=== PATIENT | male | born 1955 | race American Indian/Alaskan Native ===

== ENCOUNTER 2019-04-22 14:30 | Emergency (ER) | payer OTHER ==
--- NOTE | 2019-04-22 14:40 | Event Note ---
ED Screening Note Date of service: 04/22/19 Time: 14:38 ED Screening Note: 63 y/o male comes in for burning to both feet times couple of weeks. This initial assessment/diagnostic orders/clinical plan/treatment(s) is/are subject to change based on patients health status, clinical progression and re- assessment by fellow clinical providers in the ED. Further treatment and workup at subsequent clinical providers discretion. Patient/guardian urged not to elope from the ED as their condition may be serious if not clinically assessed and managed. Initial orders include:
[2019-04-22 15:12] LABS: Basophils % (Auto) 0.6 % (0.0-1.8); Hematocrit 53.9 % (35.5-45.6); Hemoglobin 18.2 gm/dl (11.8-15.2); Lymphocytes # (Auto) 1.1 K/mm3 (1.2-5.4); Lymphocytes % (Auto) 21.7 % (13.4-35.0); Mean Corpuscular HGB Conc 34 % (32-34); Mean Corpuscular Volume 101 fl (84-94); Monocytes # (Auto) 0.3 K/mm3 (0.0-0.8); Monocytes % (Auto) 6.4 % (0.0-7.3); Platelet Count 200 K/mm3 (140-440); Red Blood Count 5.34 M/mm3 (3.65-5.03); Red Cell Distribution Width 12.8 % (13.2-15.2)
[2019-04-22] MEDS ORDERED: NORMODYNE IV ONE ×2 (15:20→15:57)
[2019-04-22 15:34] LABS: Alanine Aminotransferase 13 units/L (7-56); Albumin 4.6 g/dL (3.9-5); BUN/Creatinine Ratio 16; Blood Urea Nitrogen 16 mg/dL (9-20); Calcium 9.9 mg/dL (8.4-10.2); Hemolysis Index 34
--- NOTE | 2019-04-22 15:40 | Emergency Department Report ---
ED General Adult HPI - General Chief complaint: Dizziness Stated complaint: DRY MOUTH/FEET BURNING Time Seen by Provider: 04/22/19 15:18 Source: patient Mode of arrival: Ambulatory Limitations: No Limitations - History of Present Illness Initial comments: This is a 63-year-old gentleman who probably hasn't seen a physician in decades. He states that he came to the emergency room today because he has burning feet and is thirsty all the time. He wanted to find out if he is diabetic. According to the triage note he is weak and dizzy. However the patient denies any symptoms completely. He cannot tell me if he is previously prescribed blood pressure medicine because it has been so long since he seen a doctor he does not recall. He is found to b e significantly hypertensive. He doesn't complain of shortness of breath nor chest pain. He can't identify any other reason for seeking emergency care. -: Gradual Severity scale (0 -10): 0 Associated Symptoms: denies other symptoms - Related Data Previous Rx's Medication Instructions Recorded Last Taken Type Hydralazine HCl 50 mg PO BID #60 tablet 04/22/19 Unknown Rx Losartan/Hydrochlorothiazide 1 each PO QDAY #30 tablet 04/22/19 Unknown Rx [Losartan-Hctz 50-12.5 mg Tab] Allergies Allergy/AdvReac Type Severity Reaction Status Date / Time No Known Allergies Allergy Verified 04/22/19 14:40 ED Review of Systems ROS: Stated complaint: DRY MOUTH/FEET BURNING Other details as noted in HPI Constitutional: denies: chills, fever Eyes: denies: eye pain, eye discharge, vision change ENT: denies: ear pain, throat pain Respiratory: denies: cough, shortness of breath, wheezing Cardiovascular: denies: chest pain, palpitations Endocrine: increased thirst, unexplained weight loss. denies: increased urine Gastrointestinal: denies: abdominal pain, nausea, diarrhea Genitourinary: denies: urgency, dysuria Musculoskeletal: denies: back pain, joint swelling, arthralgia Skin: denies: rash, lesions Neurological: other (burning feet). denies: headache, weakness, paresthesias Psychiatric: denies: anxiety, depression Hematological/Lymphatic: denies: easy bleeding, easy bruising ED Past Medical Hx - Past Medical History Previous Medical History?: Yes - Surgical History Past Surgical History?: No - Social History Smoking Status: Never Smoker Substance Use Type: Alcohol - Medications Home Medications: Home Medications Medication Instructions Recorded Confirmed Last Taken Type Hydralazine HCl 50 mg PO BID #60 tablet 04/22/19 Unknown Rx Losartan/Hydrochlorothiazide 1 each PO QDAY #30 tablet 04/22/19 Unknown Rx [Losartan-Hctz 50-12.5 mg Tab] ED Physical Exam - General Limitations: No Limitations General appearance: alert, in no apparent distress - Head Head exam: Present: atraumatic, normocephalic - Eye Eye exam: Present: normal appearance. Absent: scleral icterus - ENT ENT exam: Present: mucous membranes moist - Neck Neck exam: Present: normal inspection. Absent: tenderness, meningismus - Respiratory Respiratory exam: Present: normal lung sounds bilaterally. Absent: respiratory distress - Cardiovascular Cardiovascular Exam: Present: regular rate, normal rhythm. Absent: systolic murmur, diastolic murmur, rubs, gallop - GI/Abdominal GI/Abdominal exam: Present: soft, normal bowel sounds. Absent: distended, tenderness, guarding, rebound, rigid - Rectal Rectal exam: Present: deferred - Extremities Exam Extremities exam: Present: normal inspection. Absent: pedal edema, calf tenderness - Back Exam Back exam: Present: normal inspection - Neurological Exam Neurological exam: Present: alert, oriented X3, CN II-XII intact. Absent: motor sensory deficit - Psychiatric Psychiatric exam: Present: normal affect, normal mood - Skin Skin exam: Present: warm, dry, intact, normal color. Absent: rash ED Course Vital Signs 04/22/19 04/22/19 04/22/19 14:38 15:08 15:16 Temperature 97.9 F Pulse Rate 88 71 Respiratory 20 17 Rate Blood Pressure 209/114 198/94 Blood Pressure 193/97 [Left] O2 Sat by Pulse 97 98 97 Oximetry 04/22/19 04/22/19 04/22/19 15:26 15:31 15:45 Temperature Pulse Rate 73 73 71 Respiratory 23 17 Rate Blood Pressure 202/93 197/103 202/93 Blood Pressure [Left] O2 Sat by Pulse 98 98 Oximetry 04/22/19 04/22/19 04/22/19 15:57 16:00 16:01 Temperature Pulse Rate 75 72 Respiratory 17 Rate Blood Pressure 203/110 203/110 Blood Pressure 197/103 [Left] O2 Sat by Pulse 97 Oximetry 04/22/19 04/22/19 04/22/19 16:15 16:31 16:37 Temperature Pulse Rate 65 64 75 Respiratory 15 19 Rate Blood Pressure 197/103 205/116 205/116 Blood Pressure [Left] O2 Sat by Pulse 98 98 Oximetry 04/22/19 04/22/19 04/22/19 16:45 17:00 17:15 Temperature Pulse Rate 82 76 69 Respiratory 16 16 15 Rate Blood Pressure 205/116 201/102 205/116 Blood Pressure [Left] O2 Sat by Pulse 99 97 98 Oximetry - Reevaluation(s) Reevaluation #1: Patient remains asymptomatic. His blood pressure is now still elevated but not "malignantly" high. The importance of blood pressure management has been emphasized to him and his significant other. He will be referred to primary care and started on antihypertensive agents. 04/22/19 17:27 ED Medical Decision Making - Lab Data Result diagrams: 04/22/19 14:41 04/22/19 14:41 Laboratory Results - last 24 hr 04/22/19 04/22/19 04/22/19 14:41 14:41 15:20 WBC 5.2 RBC 5.34 H Hgb 18.2 H Hct 53.9 H MCV 101 H MCH 34 H MCHC 34 RDW 12.8 L Plt Count 200 Lymph % (Auto) 21.7 Eddy % (Auto) 6.4 Eos % (Auto) 0.0 Baso % (Auto) 0.6 Lymph # 1.1 L Eddy # 0.3 Eos # 0.0 Baso # 0.0 Seg Neutrophils % 71.3 H Seg Neutrophils # 3.7 Sodium 139 Potassium 4.1 Chloride 100.6 Carbon Dioxide 24 Anion Gap 19 BUN 16 Creatinine 1.0 Estimated GFR > 60 BUN/Creatinine Ratio 16 Glucose 131 H POC Glucose Calcium 9.9 Total Bilirubin 2.60 H AST 18 ALT 13 Alkaline Phosphatase 71 Total Protein 7.7 Albumin 4.6 Albumin/Globulin Ratio 1.5 Urine Color Yellow Urine Turbidity Clear Urine pH 6.0 Ur Specific [place] 1.018 Urine Protein <15 mg/dl Urine Glucose (UA) Neg Urine Ketones 20 Urine Blood Sm Urine Nitrite Neg Urine Bilirubin Neg Urine Urobilinogen < 2.0 Ur Leukocyte Esterase Neg Urine WBC (Auto) < 1.0 Urine RBC (Auto) 5.0 Urine Mucus 1+ 04/22/19 15:43 WBC RBC Hgb Hct MCV MCH MCHC RDW Plt Count Lymph % (Auto) Eddy % (Auto) Eos % (Auto) Baso % (Auto) Lymph # Eddy # Eos # Baso # Seg Neutrophils % Seg Neutrophils # Sodium Potassium Chloride Carbon Dioxide Anion Gap BUN Creatinine Estimated GFR BUN/Creatinine Ratio Glucose POC Glucose 86 Calcium Total Bilirubin AST ALT Alkaline Phosphatase Total Protein Albumin Albumin/Globulin Ratio Urine Color Urine Turbidity Urine pH Ur Specific [place] Urine Protein Urine Glucose (UA) Urine Ketones Urine Blood Urine Nitrite Urine Bilirubin Urine Urobilinogen Ur Leukocyte Esterase Urine WBC (Auto) Urine RBC (Auto) Urine Mucus - EKG Data -: EKG Interpreted by Ia EKG shows normal: sinus rhythm, axis, intervals, QRS complexes, ST-T waves Rate: normal - EKG Data Interpretation: no acute changes - Radiology Data Radiology results: image reviewed (chest x-ray no acute process) Critical care attestation.: If time is entered above; I have spent that time in minutes in the direct care of this critically ill patient, excluding procedure time. ED Disposition Clinical Impression: Uncontrolled hypertension, Polycythemia Disposition: DC-01 TO HOME OR SELFCARE Is pt being admited?: No Does the pt Need Aspirin: No Condition: Stable Instructions: Hypertension (ED) Additional Instructions: I would recommend further evaluation and follow-up care with a primary care physician or the primary care clinic. See referrals. Increase fluids. 2 baby aspirin a day is recommended. Prescriptions: Hydralazine HCl 50 mg PO BID #60 tablet Losartan/Hydrochlorothiazide [Losartan-Hctz 50-12.5 mg Tab] 1 each PO QDAY #30 tablet Time of Disposition: 17:32
[2019-04-22 15:46] LABS: Bilirubin,Urine NEG (Negative); Blood,Urine SM (Negative); Color,Urine Yellow (Yellow); Mucus,Urine 1+ /HPF; Protein,Urine <15 mg/dL mg/dL (Negative); Urobilinogen,Urine < 2.0 mg/dL (<2.0); WBC,Urine < 1.0 /HPF (0.0-6.0)
--- NOTE | 2019-04-22 16:18 | XRay Report ---
CHEST 1 VIEW INDICATION / CLINICAL INFORMATION: hypertension. COMPARISON: None available. FINDINGS: SUPPORT DEVICES: None. HEART / MEDIASTINUM: No significant abnormality. LUNGS / PLEURA: No significant pulmonary or pleural abnormality. No pneumothorax. ADDITIONAL FINDINGS: No significant additional findings. IMPRESSION: 1. No acute findings. Signer Name: Aurelio Clements MD Signed: 04/22/2019 4:14 PM Workstation Name: [id number]
[2019-04-22] MEDS ORDERED: APRESOLINE ONE (16:32)
[2019-04-22] MEDS ORDERED: APRESOLINE IV ONE ×3 (16:36→17:27)
[2019-04-22 17:28] VITALS: BP 199/104
== END 2019-04-22 17:57 | disposition home or self-care (01) ==
LOC: ED 14:30
DX: I16.0 Hypertensive urgency (principal); I10 Essential (primary) hypertension; D75.1 Secondary polycythemia; Z79.899 Other long term (current) drug therapy
CPT/HCPCS: 36415; 71045; 80053; 81001; 82962; 85025; 93005; 93010; 96374; 96375; 96376; 99284; J0360